=== PATIENT | male | born 1960 | race American Indian/Alaskan Native ===

== ENCOUNTER 2016-12-06 03:23 | Emergency (ER) | payer OTHER ==
--- NOTE | 2016-12-06 04:05 | XRay Report ---
FINAL REPORT PROCEDURE: XR KNEE 1-2V LT TECHNIQUE: LEFT knee radiographs, AP and lateral views. CPT 73548 HISTORY: knee pain COMPARISON: No prior studies are available for comparison. FINDINGS: Fracture (s) and/or Dislocation(s): None . Alignment: Normal . Joint space(s): Mild narrowing of the joint spaces. Slight spur formation off the osseous structures.. Soft tissues: Normal . Bone mineralization: Normal . Foreign bodies: None . IMPRESSION: There is no evidence of an acute fracture or dislocation. Mild arthritis.
--- NOTE | 2016-12-06 04:06 | XRay Report ---
FINAL REPORT PROCEDURE: XR ELBOW 2V LT TECHNIQUE: LEFT elbow radiographs, including AP and lateral views. HISTORY: elbow pain COMPARISON: No prior studies are available for comparison. FINDINGS: Fracture (s) and/or Dislocation(s): None . Alignment: Normal . Joint space(s): Mild narrowing of the joint spaces. Slight spur formation off of the osseous structures.. Soft tissues: Normal . Bone mineralization: Normal . Foreign bodies: None . IMPRESSION: There is no evidence of an acute fracture or dislocation. Mild arthritis
[2016-12-06] MEDS ORDERED: MOTRIN PO ONE (07:38)
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
[2016-12-06] MEDS ORDERED: TRIPLE ANTIBIOTIC TP ONE (07:39)
[2016-12-06 07:47] VITALS: BP 130/81
== END 2016-12-06 07:52 | disposition home or self-care (01) ==
LOC: ED 03:23
DX: T14.8 Other injury of unspecified body region (principal); S00.511A Abrasion of lip, initial encounter; S80.212A Abrasion, left knee, initial encounter; S50.312A Abrasion of left elbow, initial encounter; I10 Essential (primary) hypertension; W01.0XXA Fall on same level from slipping, tripping and stumbling without subsequent striking against object, initial encounter; Y93.89 Activity, other specified; Y99.8 Other external cause status; Y92.89 Other specified places as the place of occurrence of the external cause
CPT/HCPCS: 99283; A6250

== ENCOUNTER 2017-03-01 23:00 | Emergency (ER) | payer BC, OTHER ==
[2017-03-01] MEDS ORDERED: TYLENOL ONE (23:03)
[2017-03-01] MEDS ORDERED: TYLENOL PO STA (23:13)
[2017-03-01] MEDS ORDERED: NACL 0.9% 500 ML 500 ML IV ONE (23:13)
[2017-03-01] MEDS ORDERED: NACL 0.9% 1000 ML 1,000 ML ONE (23:16)
[2017-03-01] MEDS ORDERED: BENADRYL ONE (23:16)
[2017-03-01] MEDS ORDERED: TORADOL ONE (23:33)
[2017-03-01] MEDS ORDERED: TORADOL IV ONE (23:40)
[2017-03-01] MEDS ORDERED: NACL 0.9% 1000 ML 1,000 ML IV ONE (23:40)
[2017-03-02 00:04] LABS: Basophils % (Auto) 0.6 % (0.0-1.8); Eosinophils % (Auto) 0.4 % (0.0-4.3); Hematocrit 39.7 % (35.5-45.6); Hemoglobin 12.8 gm/dl (11.8-15.2); Mean Corpuscular HGB Conc 32 % (32-34); Mean Corpuscular Hemoglobin 27 pg (28-32); Mean Corpuscular Volume 83 fl (84-94); Platelet Count 141 K/mm3 (140-440); Red Blood Count 4.81 M/mm3 (3.65-5.03); Red Cell Distribution Width 14.4 % (13.2-15.2); White Blood Count 13.7 K/mm3 (4.5-11.0)
[2017-03-02 00:22] LABS: Alanine Aminotransferase 66 units/L (7-56); Albumin 3.6 g/dL (3.9-5); Albumin/Globulin Ratio 1.2 %; Alkaline Phosphatase 72 units/L (35-129); Anion Gap 21 mmol/L; BUN/Creatinine Ratio 7.69; Blood Urea Nitrogen 10 mg/dL (9-20); Carbon Dioxide 21 mmol/L (22-30); Chloride 95.1 mmol/L (98-107); Glucose 160 mg/dL (75-100); Potassium 4.3 mmol/L (3.6-5.0); Sodium 133 mmol/L (137-145); Total Protein 6.5 g/dL (6.3-8.2)
[2017-03-02 01:02] LABS: Bilirubin,Urine NEG (Negative); Blood,Urine NEG (Negative); Ketones,Urine NEG (Negative); Leukocyte Esterase,Urine NEG (Negative); Mucus,Urine FEW /HPF; Nitrite,Urine NEG (Negative); Urobilinogen,Urine < 2.0 mg/dL (<2.0)
--- NOTE | 2017-03-02 01:17 | Emergency Department Report ---
HPI - General Chief Complaint: Fever Time Seen by Provider: 03/01/17 23:45 - HPI HPI: This is a 56-year-old male presents to ED complaining of fever for the past 3 days as well as generalized body muscle aches Patient states he is a fever for the past couple of days the past 2 days started to feel generalized body aches with a mild headache. Signed patient denies runny nose, cough, contact with any sick persons, travel outside of the country, chest pain, shortness of breath, abdominal pain, nausea, vomiting, diarrhea or constipation. ED Past Medical Hx - Past Medical History Previous Medical History?: Yes Hx Hypertension: Yes - Surgical History Past Surgical History?: No - Social History Smoking Status: Never Smoker Substance Use Type: Alcohol - Medications Home Medications: Home Medications Medication Instructions Recorded Confirmed Last Taken Type Azithromycin [Zithromax TAB] 500 mg PO QDAY #7 tablet 03/02/17 Unknown Rx Cyclobenzaprine HCl [Flexeril 5 MG 5 mg PO QHS #20 tab 03/02/17 Unknown Rx TAB] Ibuprofen [Motrin 600 MG tab] 600 mg PO Q8H PRN #40 tablet 03/02/17 Unknown Rx ED Review of Systems ROS: Stated complaint: FEVER Other details as noted in HPI Constitutional: denies: chills, fever Eyes: denies: eye pain, eye discharge, vision change ENT: denies: ear pain, throat pain Respiratory: denies: cough, shortness of breath, wheezing Cardiovascular: denies: chest pain, palpitations Endocrine: no symptoms reported Gastrointestinal: denies: abdominal pain, nausea, diarrhea Genitourinary: denies: urgency, dysuria Musculoskeletal: denies: back pain, joint swelling, arthralgia Skin: denies: rash, lesions Neurological: denies: headache, weakness, paresthesias Psychiatric: denies: anxiety, depression Hematological/Lymphatic: denies: easy bleeding, easy bruising Physical Exam - Physical Exam Vital Signs: Vital Signs 03/01/17 03/02/17 23:17 00:59 Temperature 102.7 F H 100.3 F H Pulse Rate 101 H 74 Respiratory 22 16 Rate Blood Pressure 150/100 128/80 [Right] O2 Sat by Pulse 99 95 Oximetry Physical Exam: GENERAL: Alert and oriented x3, no apparent distress, Normal Gait, atraumatic. HEAD: Head is normocephalic and a-traumatic. EYES: Extra ocular muscles are intact. Pupils are equal, round, and reactive to light and accommodation. EARS: symetrical, atraumatic, non tender, ear canal clear and moderate cerumen, tympanic membrance non inflamed. gross auditory nml bilaterally. NOSE: Nose symetrical, Nontender,Nares appeared normal. MOUTH:Mouth is well hydrated and without lesions. Tonsils nonerythematous or swollen, Uvula midline, Tongue not elevated. Mucous membranes are moist. Posterior pharynx clear, no exudate or lesions. Patent airways. NECK: Supple. Non edematous, No carotid bruits. No lymphadenopathy or thyromegaly. No C-spine tenderness LUNGS: Symetrical with respiration, No wheezing, no rales or crackles, CTAB. HEART: S1, S2 present, regular rate and rhythm without murmur, no rubs, no gallops. Non tender to palpation ABDOMEN: No organomegaly was noted,Positive bowel sounds, soft, and non- distended. . Nontender to palpation on all Quadrants, NO CVA tenderness. EXTREMITIES/MUSCULOSKELETAL: No cyanosis, clubbing, rash, lesions or edema. Full ROM bilaterally. UE/LE Pulses 2+ bilaterally. LE and UE 5+ strength bilaterally, NEUROLOGIC: The patient is cooperative with no focal neurologic deficits. Cranial nerves II through XII are grossly intact. Normal speech. PSYCHIATRIC: Mood is congruent with affect, denies suicidal or homicidal ideations. SKIN: Warm and dry, No lesions, No ulceration or induration present. ED Course Vital Signs 03/01/17 03/02/17 23:17 00:59 Temperature 102.7 F H 100.3 F H Pulse Rate 101 H 74 Respiratory 22 16 Rate Blood Pressure 150/100 128/80 [Right] O2 Sat by Pulse 99 95 Oximetry - Reevaluation(s) Reevaluation #1: She reports feeling much better. The patient is resting comfortably. 03/02/17 03:32 Reevaluation #2: Vital signs normalized. Fever reduced. After 1 L of fluid, Rocephin, Tylenol. Patient is sleeping comfortably 03/02/17 04:32 ED Medical Decision Making - Lab Data Result diagrams: 03/01/17 22:30 03/01/17 22:30 Laboratory Results - last 24 hr 0803/01/17 03/02/17 22:30 22:30 00:30 WBC 13.7 H RBC 4.81 Hgb 12.8 Hct 39.7 MCV 83 L MCH 27 L MCHC 32 RDW 14.4 Plt Count 141 Lymph % (Auto) 11.2 L [place] % (Auto) 13.9 H Eos % (Auto) 0.4 Baso % (Auto) 0.6 Lymph # 1.5 [place] # 1.9 H Eos # 0.1 Baso # 0.1 Seg Neutrophils % 73.9 H Seg Neutrophils # 10.2 H Sodium 133 L Potassium 4.3 Chloride 95.1 L Carbon Dioxide 21 L Anion Gap 21 BUN 10 Creatinine 1.3 Estimated GFR > 60 BUN/Creatinine Ratio 7.69 Glucose 160 H Calcium 8.0 L Total Bilirubin 0.50 AST 63 H ALT 66 H Alkaline Phosphatase 72 Total Protein 6.5 Albumin 3.6 L Albumin/Globulin Ratio 1.2 Urine Color Yellow Urine Turbidity Clear Urine pH 8.0 H Ur Specific [place] 1.020 Urine Protein 100 mg/dl Urine Glucose (UA) Neg Urine Ketones Neg Urine Blood Neg Urine Nitrite Neg Urine Bilirubin Neg Urine Urobilinogen < 2.0 Ur Leukocyte Esterase Neg Urine WBC (Auto) 3.0 Urine RBC (Auto) 1.0 U Epithel Cells (Auto) < 1.0 Urine Mucus Few - EKG Data EKG shows normal: sinus rhythm Rate: normal - Radiology Data Radiology results: report reviewed, image reviewed FINAL REPORT PROCEDURE: XR CHEST ROUTINE 2V TECHNIQUE: PA and lateral chest radiographs were obtained. CPT 36059 HISTORY: r/o pneumonia, cough congestion COMPARISON: No prior studies are available for comparison. FINDINGS: Heart: Normal. Mediastinum/Vessels: Normal. Lungs/Pleural space: There is a infiltrate identified in the left upper and lower lungs. Right lung is aerated and clear. Bony thorax: No acute osseous abnormality. Other: IMPRESSION: Left lung pneumonia. Transcribed By: [facility] Dictated By: GRACIELA MARTINEZ MD Electronically Authenticated By: GRACIELA MARTINEZ MD Signed Date/Time: 03/02/17 9100 - Medical Decision Making This 56-year-old male presents with left sided pneumonia ED course: CBC, CMP, urinalysis, influenza., EKG, Chest x-ray are ordered. See results above CBC shows mildly elevated white blood count, see results above Discussed all findings the patient. EKG mildly abnormal. 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 Discussed the patient have any worsening symptoms to return to ED Patient had an iron transfer ED stay Patient states he understands instructions and will follow instructions Patient's vitals normalize during ED stay. he is much better. Critical care attestation.: If time is entered above; I have spent that time in minutes in the direct care of this critically ill patient, excluding procedure time. ED Disposition Clinical Impression: Fever Qualifiers: Fever type: unspecified Qualified Code(s): R50.9 - Fever, unspecified Pneumonia Qualifiers: Pneumonia type: due to unspecified organism Laterality: left Lung location: upper lobe of lung Qualified Code(s): J18.1 - Lobar pneumonia, unspecified organism Disposition: TO HOME OR SELFCARE Is pt being admited?: No Does the pt Need Aspirin: No Condition: Stable Instructions: Fever in Adults (ED), Bacterial Pneumonia (ED), Pneumonia (ED) Additional Instructions: Continue taking medication such as Motrin every 8 hours for pain and fever Follow-up with primary care physician The fever returns or worsens return to ED sign if any new symptoms return to ED Get appropriate rest, increase fluids daily Prescriptions: Cyclobenzaprine HCl [Flexeril 5 MG TAB] 5 mg PO QHS #20 tab Azithromycin [Zithromax TAB] 500 mg PO QDAY #7 tablet Ibuprofen [Motrin 600 MG tab] 600 mg PO Q8H PRN #40 tablet PRN Reason: Pain Referrals: PRIMARY MD FEI [Primary Care Provider] - 3-5 Days PEDRO BARKLEY MD [Referring] - 3-5 Days [facility] [Outside] - 3-5 Days [facility] [Outside] - 3-5 Days Forms: Accompanied Note, Work/School Release Form(ED) Time of Disposition: 06:14
[2017-03-02] MEDS ORDERED: ROCEPHIN 250 MG in NACL 0.9% 50 ML IM ONE (02:45)
--- NOTE | 2017-03-02 05:02 | XRay Report ---
FINAL REPORT PROCEDURE: XR CHEST ROUTINE 2V TECHNIQUE: PA and lateral chest radiographs were obtained. CPT 50570 HISTORY: r/o pneumonia, cough congestion COMPARISON: No prior studies are available for comparison. FINDINGS: Heart: Normal. Mediastinum/Vessels: Normal. Lungs/Pleural space: There is a infiltrate identified in the left upper and lower lungs. Right lung is aerated and clear. Bony thorax: No acute osseous abnormality. Other: IMPRESSION: Left lung pneumonia.
[2017-03-02 06:38] VITALS: BP 136/85
== END 2017-03-02 06:37 | disposition home or self-care (01) ==
LOC: EEVIPCON 23:00 → ED 23:00
DX: J18.1 Lobar pneumonia, unspecified organism (principal); I10 Essential (primary) hypertension
CPT/HCPCS: 36415; 71020; 80053; 81001; 85025; 87086; 87400; 93005; 93010; 96361; 96374; 96375; 99284; J0696; J1885; J7030; J1200

== ENCOUNTER 2017-05-02 21:38 | Emergency (ER) | payer BC ==
[2017-05-02 21:56] VITALS: BP 135/99
--- NOTE | 2017-05-02 22:19 | XRay Report ---
FINAL REPORT EXAM: XR CHEST ROUTINE 2V HISTORY: cough TECHNIQUE: Two view chest PA and lateral PRIORS: Comparison is dated March 02, 2017 FINDINGS: Cardiac and mediastinal contours are unremarkable. No focal pulmonary infiltrate is identified. No pleural fluid collection seen. Pulmonary vasculature is unremarkable. Left upper lobe infiltrate seen previously is resolved IMPRESSION: Negative two-view chest
--- NOTE | 2017-05-02 23:12 | Emergency Department Report ---
Pediatric URI - HPI Chief Complaint: Upper Respiratory Infection Stated Complaint: FOLLOW CHEST XRAY/ COUGH ED Review of Systems ROS: Stated complaint: FOLLOW CHEST XRAY/ COUGH Other details as noted in HPI ED Peds URI Exam - Exam General: Vital signs noted. No distress. Alert and acting appropriately. Neurologic: Alert and oriented, no deficits. Musculoskeletal: Unremarkable. ED Course Vital Signs 05/02/17 21:52 Temperature 97.6 F Pulse Rate 73 Respiratory 16 Rate Blood Pressure 135/99 O2 Sat by Pulse 98 Oximetry Critical care attestation.: If time is entered above; I have spent that time in minutes in the direct care of this critically ill patient, excluding procedure time. ED Disposition Disposition: DC-01 TO HOME OR SELFCARE Condition: Stable Instructions: Acute Bronchitis (ED) Prescriptions: ALBUTEROL Inhaler [ProAir HFA Inhaler] 1 puff IH BID #1 inha Meloxicam [Mobic] 7.5 mg PO QDAY #7 tablet Referrals: PRIMARY CARE [Primary Care Provider] - 3-5 Days
== END 2017-05-02 23:53 | disposition home or self-care (01) ==
LOC: ED 21:38
DX: R05 Cough (principal)
CPT/HCPCS: 71020; 99283

== ENCOUNTER 2017-11-02 19:21 | Emergency (ER) | payer BC ==
[2017-11-02 19:27] VITALS: BP 179/105
[2017-11-02] MEDS ORDERED: TORADOL IV ONE (19:51)
[2017-11-02] MEDS ORDERED: NORCO 7.5/325 PO ONE (19:51)
[2017-11-02] MEDS ORDERED: ZOVIRAX 800 MG in NACL 0.9% 100 ML IV ONE (20:00)
[2017-11-02 20:30] LABS: Alanine Aminotransferase 21 units/L (7-56); BUN/Creatinine Ratio 13; Blood Urea Nitrogen 16 mg/dL (9-20); Calcium 8.6 mg/dL (8.4-10.2); Hemolysis Index 8
[2017-11-02 20:42] LABS: Hematocrit 44.8 % (35.5-45.6); Hemoglobin 14.5 gm/dl (11.8-15.2); Mean Corpuscular HGB Conc 32 % (32-34); Mean Corpuscular Hemoglobin 27 pg (28-32); Mean Corpuscular Volume 83 fl (84-94); Platelet Count 175 K/mm3 (140-440); Red Blood Count 5.41 M/mm3 (3.65-5.03); Red Cell Distribution Width 14.7 % (13.2-15.2)
[2017-11-02 21:36] LABS: Band Neutrophils # (Manual) 0.3 K/mm3; Basophils % (Manual) 0 % (0.0-1.8); Eosinophils % (Manual) 0 % (0.0-4.3); Total Cells Counted 100
[2017-11-02 21:37] LABS: RBC Morphology Normal
--- NOTE | 2017-11-02 21:39 | Emergency Department Report ---
ED General Adult HPI - General Chief complaint: Skin Rash Stated complaint: SHINGLES Time Seen by Provider: 11/02/17 19:49 Source: patient Mode of arrival: Ambulatory Limitations: No Limitations - History of Present Illness Initial comments: Patient is a 57-year-old [place] male who is presenting with right upper face pain. Patient states that for the past 3 days he has been developing a progressively worsening rash on the face. Patient states it started a few small bumps on the right forehead. This progressed to extending into the hair involves the eyelid and extends up towards the ear. Patient states this small vesicles. Patient states his vision is unaffected despite the fact that his eyelids are swollen. He has no pain with moving his eyes. There is no blurry vision. Patient states the pain is more the scan. Severity scale (0 -10): 6 Quality: burning, aching Consistency: constant Associated Symptoms: rash. denies: confusion, chest pain, cough, diaphoresis, fever/chills, headaches, loss of appetite, nausea/vomiting - Related Data Previous Rx's Medication Instructions Recorded Last Taken Type Azithromycin [Zithromax TAB] 500 mg PO QDAY #7 tablet 03/02/17 Unknown Rx Cyclobenzaprine HCl [Flexeril 5 MG 5 mg PO QHS #20 tab 03/02/17 Unknown Rx TAB] Ibuprofen [Motrin 600 MG tab] 600 mg PO Q8H PRN #40 tablet 03/02/17 Unknown Rx ALBUTEROL Inhaler [ProAir HFA 1 puff IH BID #1 inha 05/02/17 Unknown Rx Inhaler] Meloxicam [Mobic] 7.5 mg PO QDAY #7 tablet 05/02/17 Unknown Rx guaiFENesin DM [Robitussin Dm] 5 ml PO BID #118 ml 05/02/17 Unknown Rx methylPREDNISolone [Medrol] 4 mg PO QAM #1 pack 05/02/17 Unknown Rx Acyclovir 800 mg PO 5XD #35 tablet 11/02/17 Unknown Rx HYDROcodone/APAP 5-325 [[place] 1 each PO Q6HR PRN #14 tablet 11/02/17 Unknown Rx 5/325] Naphazoline HCl/Pheniramine 10 ml OP BID #1 bottle 11/02/17 Unknown Rx [Naphcon-A Eye Drops] Allergies Allergy/AdvReac Type Severity Reaction Status Date / Time No Known Allergies Allergy Verified 03/01/17 23:05 ED Review of Systems ROS: Stated complaint: SHINGLES Other details as noted in HPI Comment: All other systems reviewed and negative ED Past Medical Hx - Past Medical History Hx Hypertension: Yes - Social History Smoking Status: Never Smoker Substance Use Type: None - Medications Home Medications: Home Medications Medication Instructions Recorded Confirmed Last Taken Type Azithromycin [Zithromax TAB] 500 mg PO QDAY #7 tablet 03/02/17 Unknown Rx Cyclobenzaprine HCl [Flexeril 5 MG 5 mg PO QHS #20 tab 03/02/17 Unknown Rx TAB] Ibuprofen [Motrin 600 MG tab] 600 mg PO Q8H PRN #40 tablet 03/02/17 Unknown Rx ALBUTEROL Inhaler [ProAir HFA 1 puff IH BID #1 inha 05/02/17 Unknown Rx Inhaler] Meloxicam [Mobic] 7.5 mg PO QDAY #7 tablet 05/02/17 Unknown Rx guaiFENesin DM [Robitussin Dm] 5 ml PO BID #118 ml 05/02/17 Unknown Rx methylPREDNISolone [Medrol] 4 mg PO QAM #1 pack 05/02/17 Unknown Rx Acyclovir 800 mg PO 5XD #35 tablet 11/02/17 Unknown Rx HYDROcodone/APAP 5-325 [[place] 1 each PO Q6HR PRN #14 tablet 11/02/17 Unknown Rx 5/325] Naphazoline HCl/Pheniramine 10 ml OP BID #1 bottle 11/02/17 Unknown Rx [Naphcon-A Eye Drops] ED Physical Exam - General Limitations: No Limitations General appearance: alert, in no apparent distress - Head Head exam: Present: atraumatic, normocephalic, other (patient has a erythematous swollen indurated lesion on his right first trigeminal distribution. Patient has multiple small vesicles in this area as well.) - Eye Eye exam: Present: normal appearance, PERRL, EOMI - ENT ENT exam: Present: mucous membranes moist - Neck Neck exam: Present: normal inspection - Respiratory Respiratory exam: Present: normal lung sounds bilaterally. Absent: respiratory distress - Cardiovascular Cardiovascular Exam: Present: regular rate, normal rhythm. Absent: systolic murmur, diastolic murmur, rubs, gallop - GI/Abdominal GI/Abdominal exam: Present: soft, normal bowel sounds - Rectal Rectal exam: Present: deferred - Extremities Exam Extremities exam: Present: normal inspection - Back Exam Back exam: Present: normal inspection - Neurological Exam Neurological exam: Present: alert, oriented X3 - Psychiatric Psychiatric exam: Present: normal affect, normal mood - Skin Skin exam: Present: warm, dry, intact, normal color. Absent: rash ED Course Vital Signs 11/02/17 11/02/17 11/02/17 19:25 20:10 20:40 Temperature 98 F Pulse Rate 80 Respiratory 18 18 18 Rate Blood Pressure 179/105 O2 Sat by Pulse 100 Oximetry 11/02/17 20:49 Temperature Pulse Rate Respiratory 18 Rate Blood Pressure O2 Sat by Pulse Oximetry ED Medical Decision Making - Lab Data Result diagrams: 11/02/17 20:28 11/02/17 19:59 - Medical Decision Making Patient is a 57-year-old black male who clinically has herpes zoster to the right first trigeminal dermatome. This appears to be excluding the right eye. Patient has no pain in the eyes vision is unaffected. Patient still would be placed on the highest dose of acyclovir. Patient white count is normal does not appear that the patient has a secondary bacterial infection. Patient be discharged home with pain meds and acyclovir. Critical care attestation.: If time is entered above; I have spent that time in minutes in the direct care of this critically ill patient, excluding procedure time. ED Disposition Clinical Impression: Zoster Qualifiers: Herpes zoster complications: unspecified herpes zoster complication Qualified Code(s): B02.8 - Zoster with other complications Disposition: DC-01 TO HOME OR SELFCARE Is pt being admited?: No Does the pt Need Aspirin: No Condition: Stable Instructions: Herpes Zoster (ED) Prescriptions: Acyclovir 800 mg PO 5XD #35 tablet HYDROcodone/APAP 5-325 [[place] 5/325] 1 each PO Q6HR PRN #14 tablet PRN Reason: Pain Naphazoline HCl/Pheniramine [Naphcon-A Eye Drops] 10 ml OP BID #1 bottle Referrals: KARUNA JUNIOR MD [Staff Physician] - 3-5 Days
== END 2017-11-02 22:14 | disposition home or self-care (01) ==
LOC: ED 19:21
DX: B02.8 Zoster with other complications (principal); I10 Essential (primary) hypertension
CPT/HCPCS: 36415; 80053; 85007; 85025; 96365; 96375; 99283; J0133; J1885

== ENCOUNTER 2018-09-23 05:50 | Outpatient (CLI) | payer BC | END 2018-09-23 05:51 | disposition home or self-care (01) | LOC: ECHO 05:50 | PROVIDERS: ATTEND Internal Medicine Cardiovascular Disease | DX: I08.0 Rheumatic disorders of both mitral and aortic valves (principal); I11.0 Hypertensive heart disease with heart failure | CPT/HCPCS: 93306 ==

== ENCOUNTER 2019-01-10 05:38 | Outpatient (CLI) | payer BC | END 2019-01-10 05:39 | disposition home or self-care (01) | LOC: ECHO 05:38 | PROVIDERS: ATTEND Internal Medicine Cardiovascular Disease | DX: I35.1 Nonrheumatic aortic (valve) insufficiency (principal); I10 Essential (primary) hypertension | CPT/HCPCS: 93306 ==

== ENCOUNTER 2019-07-30 05:05 | Emergency (ER) | payer BC ==
[2019-07-30 05:35] VITALS: BP 143/89
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
== END 2019-07-30 07:31 ==
LOC: EEVIPCON 05:05 → ED 05:05
DX: S62.307A Unspecified fracture of fifth metacarpal bone, left hand, initial encounter for closed fracture (principal); I10 Essential (primary) hypertension; W23.0XXA Caught, crushed, jammed, or pinched between moving objects, initial encounter; Y93.89 Activity, other specified; Y92.89 Other specified places as the place of occurrence of the external cause; Y99.8 Other external cause status